=== PATIENT | female | born 1955 | race Caucasian/White ===

== ENCOUNTER 2018-08-28 22:28 | Emergency (ER) | payer SELFPAY ==
[2018-08-28 22:38] VITALS: BMI 23.3
[2018-08-28] MEDS ORDERED: TDAP Vaccine 0.5 mL Syr IM ONE (23:10)
[2018-08-28 23:25] VITALS: RESP 18; TEMP 98
--- NOTE | 2018-08-28 23:45 | ED PDOC ---
Arrival/HPI - General Historian: Patient - History of Present Illness Narrative History of Present Illness (Text): 08/28/18 23:10 Michel Montes De Oca is a 62 year old female who presents to the Emergency department status post mechanical fall after she tripped and fell due to a "raised" section of sidewalk. Patient now complaining of pain to upper lip/right cheek and left knee. Patient sustained a laceration to the inner aspect of upper lip and broke her left upper frontal tooth. Patient denies any loss of consciousness, back pain, neck pain, other injuries, or any other complaints. Time/Duration: Prior to Arrival Symptom Onset: Sudden Symptom Course: Unchanged Context: Tripped <Jacqueline Castle PA-C - Last Filed: 08/29/18 00:23> <Emeka Vela - Last Filed: 08/29/18 00:29> - General Chief Complaint: Trauma Time Seen by Provider: 08/28/18 22:56 Past Medical History - Provider Review Nursing Documentation Reviewed: Yes - Cardiac Hx Hypertension: Yes - Psychiatric Hx Substance Use: No <Jacqueline Castle PA-C - Last Filed: 08/29/18 00:23> Family/Social History - Physician Review Nursing Documentation Reviewed: Yes Family/Social History: Unknown Family HX Smoking Status: Never Smoked Hx Alcohol Use: No Hx Substance Use: No <Jacqueline Castle PA-C - Last Filed: 08/29/18 00:23> Allergies/Home Meds <Jacqueline Castle PA-C - Last Filed: 08/29/18 00:23> <Emeka Vela - Last Filed: 08/29/18 00:29> Allergies/Adverse Reactions: Allergies No Known Allergies Allergy (Verified 08/29/18 00:10) Home Medications: Home Meds Medication Instructions Recorded Confirmed Unobtainable 08/29/18 08/29/18 Review of Systems - Physician Review All systems were reviewed & negative as marked: Yes - Review of Systems ENT: Other (+broken left upper frontal tooth) Skin: Laceration <Jacqueline Castle PA-C - Last Filed: 08/29/18 00:23> Physical Exam Vital Signs Reviewed: Yes Vital Signs Temp Pulse Resp BP Pulse Ox 08/28/18 23:01 98 F 81 18 172/111 H 98 Temperature: Afebrile Blood Pressure: Hypertensive Pulse: Regular Respiratory Rate: Normal Appearance: Positive for: Well-Appearing, Non-Toxic, Comfortable Pain Distress: None Mental Status: Positive for: Alert and Oriented X 3 - Systems Exam Head: Present: Normocephalic, Tenderness (Tenderness to right cheek/zygoma), Swelling (Mild edema to right cheek/zygoma), Abrasion (Abrasion to upper lip), Laceration (1 cm laceration to mucosa of upper lip) Pupils: Present: PERRL Extroacular Muscles: Present: EOMI Conjunctiva: Present: Normal Ears: Present: Normal, NORMAL TM, Normal Canal. No: Erythema, TM Bulging, Fluid, TM Perf Mouth: No: Normal Teeth (Fractured left upper front tooth) Pharnyx: Present: Normal. No: ERYTHEMA, EXUDATE, TONSILS ENLARGED, Peritonsilar Swelling, Uvular Deviation, Muffled/Hoarse Voice, Strider, Soft Palate/Uvular Edema Nose (External): Present: Atraumatic Nose (Internal): Present: Normal Inspection Neck: Present: Normal Range of Motion. No: Meningeal Signs, MIDLINE TENDERNESS, Paraspinal Tenderness Respiratory/Chest: Present: Clear to Auscultation, Good Air Exchange. No: Respiratory Distress, Accessory Muscle Use Cardiovascular: Present: Regular Rate and Rhythm, Normal S1, S2. No: Murmurs Abdomen: No: Tenderness, Distention, Peritoneal Signs Back: Present: Normal Inspection. No: CVA Tenderness, Midline Tenderness, Paraspinal Tenderness Upper Extremity: Present: Normal Inspection. No: Cyanosis, Edema Lower Extremity: Present: NORMAL PULSES, Normal ROM, Neurovascularly Intact, Capillary Refill < 2 s, Other (Abrasion to left knee). No: Edema, Cyanosis, Tenderness, Swelling, Erythema, Deformity, Temperature Abnormalties Neurological: Present: GCS=15, CN II-XII Intact, Speech Normal Skin: Present: Warm, Dry, Normal Color. No: Rashes Psychiatric: Present: Alert, Oriented x 3, Normal Insight, Normal Concentration <Jacqueline Castle PA-C - Last Filed: 08/29/18 00:23> Vital Signs Temp Pulse Resp BP Pulse Ox 08/28/18 23:56 85 18 179/99 H 98 08/28/18 23:01 98 F 81 18 172/111 H 98 <Emeka Vela - Last Filed: 08/29/18 00:29> Medical Decision Making ED Course and Treatment: 08/28/18 23:10 Impression: 62 year old female presents s/p fall with lac to inner aspect of upper lip and broken left upper frontal tooth/ Plan: -- CT Head w/o contrast -- CT Maxillofacial w/o contrast -- TDAP -- Tylenol -- Reassess and disposition Prior Visits: Notes and results from previous visits were reviewed. Progress Notes: 08/29/18 00:23 CT head w/o contrast : No acute intracranial abnormality. As read by Bruno Sandoval MD 08/29/18 00:08 CT maxillofacial w/o contrast : unremarkable maxillofacial CT. As read by Bruno Sandoval MD 08/29/18 00:08 - RAD Interpretation Radiology Orders: 08/28/18 23:10 HEAD W/O CONTRAST [CT] Stat MAXILLOFACIAL W/O CONTRAST [CT] Stat - Medication Orders Current Medication Orders: Discontinued Medications Acetaminophen (Tylenol 325mg Tab) 650 mg PO STAT STA Stop: 08/28/18 23:11 Last Admin: 08/28/18 23:22 Dose: 650 mg MAR Pain/Vitals Document 08/28/18 23:22 RG (Rec: 08/28/18 23:23 RG [id number]) Pain Reassessment Is This A Pain ReAssessment? Yes Presence of Pain Presence of Pain Yes Location Pain Location Body Site Face Pain Behavior Facial Grimacing Tetanus/Reduced Diphtheria/Acell Pertussis (Boostrix Vaccine Inj) 0.5 ml IM .ONCE ONE Stop: 08/28/18 23:11 <Jacqueline Castle PA-C - Last Filed: 08/29/18 00:23> - RAD Interpretation Radiology Orders: 08/28/18 23:10 HEAD W/O CONTRAST [CT] Stat MAXILLOFACIAL W/O CONTRAST [CT] Stat - Medication Orders Current Medication Orders: Discontinued Medications Acetaminophen (Tylenol 325mg Tab) 650 mg PO STAT STA Stop: 08/28/18 23:11 Last Admin: 08/28/18 23:22 Dose: 650 mg MAR Pain/Vitals Document 08/28/18 23:22 RG (Rec: 08/28/18 23:23 [id number]) Pain Reassessment Is This A Pain ReAssessment? Yes Presence of Pain Presence of Pain Yes Location Pain Location Body Site Face Pain Behavior Facial Grimacing Re-Assess: MAR Pain/Vitals Document 08/29/18 00:22 (Rec: 08/29/18 00:26 [id number]) Pain Reassessment Is This A Pain ReAssessment? Yes Presence of Pain Presence of Pain Yes Pain Scale Used Protocol: PSCALES Pain Scale Used Numeric Location Left, Right or Bilateral Right Pain Location Body Site Cheek Intensity 3 Scale Used Numeric Pain Behavior Facial Grimacing Tetanus/Reduced Diphtheria/Acell Pertussis (Boostrix Vaccine Inj) 0.5 ml IM .ONCE ONE Stop: 08/28/18 23:11 Last Admin: 08/29/18 00:22 Dose: 0.5 ml Immunization Registry Document 08/29/18 00:22 (Rec: 08/29/18 00:25 [id number]) [facility]-Date provided 08/28/18 <Emeka Vela - Last Filed: 08/29/18 00:29> - PA / PATIENT EDUCATOR / Resident Statement NALLELY has reviewed & agrees with the documentation as recorded. - Scribe Statement The provider has reviewed the documentation as recorded by the Leftyibcarmine Grubbs Provider Scribe Attestation: All medical record entries made by the Scribe were at my direction and personally dictated by me. I have reviewed the chart and agree that the record accurately reflects my personal performance of the history, physical exam, medical decision making, and the department course for this patient. I have also personally directed, reviewed, and agree with the discharge instructions and disposition. <Jacqueline Castle PA-C - Last Filed: 08/29/18 00:23> - PA / PATIENT EDUCATOR / Resident Statement NALLELY has reviewed & agrees with the documentation as recorded. <Emeka Vela - Last Filed: 08/29/18 00:29> Disposition/Present on Arrival - Present on Arrival Any Indicators Present on Arrival: No History of DVT/PE: No History of Uncontrolled Diabetes: No Urinary Catheter: No History of Decub. Ulcer: No History Surgical Site Infection Following: None - Disposition Have Diagnosis and Disposition been Completed?: Yes Disposition Time: 00:20 Patient Plan: Discharge <Jacqueline Castle PA-C - Last Filed: 08/29/18 00:23> <Emeka Vela - Last Filed: 08/29/18 00:29> - Disposition Diagnosis: Head trauma, Lip laceration, Fracture, tooth Disposition: HOME/ ROUTINE Condition: STABLE Discharge Instructions (ExitCare): Closed Head Injury, Fractured Tooth Additional Instructions: Thank you for letting us take care of you today. You were treated for head trauma, lip laceration, s/p trip and fall. The emergency medical care you received today was directed at your acute symptoms. It may take several days for your symptoms to resolve. Return to the Emergency Department if your symptoms worsen, do not improve, or if you have any other problems. Please contact your doctor in 2 days for re-evaluation and follow up. Bring any paperwork you were given at discharge with you along with any medications you are taking to your follow up visit. Our treatment cannot replace ongoing medical care by a primary care provider (PCP) outside of the emergency department. Thank you for allowing the [facility] team to be part of your care today. If you had a CT scan: A Radiologist will review the ED reading if any change in treatment is needed we will contact you. Referrals: FAMILY PROVIDER,NO [Primary Care Provider] - Follow up with primary Forms: [facility] EHR ([place])
[2018-08-29 01:55] VITALS: BP 182/90; PULSE 81; O2SAT 97
--- NOTE | 2018-08-29 08:12 | CT ---
Date of service: 08/28/2018 PROCEDURE: CT HEAD WITHOUT CONTRAST. HISTORY: trauma COMPARISON: None available. TECHNIQUE: Axial computed tomography images were obtained through the head/brain without intravenous contrast. Radiation dose: Total exam DLP = 702 mGy-cm. This CT exam was performed using one or more of the following dose reduction techniques: Automated exposure control, adjustment of the mA and/or kV according to patient size, and/or use of iterative reconstruction technique. FINDINGS: HEMORRHAGE: No intracranial hemorrhage. BRAIN: No mass effect or edema. Minimal chronic microvascular changes. VENTRICLES: Unremarkable. No hydrocephalus. CALVARIUM: Unremarkable. PARANASAL SINUSES: Unremarkable as visualized. No significant inflammatory changes. MASTOID AIR CELLS: Unremarkable as visualized. No inflammatory changes. OTHER FINDINGS: The report concurs with the preliminary [facility] report IMPRESSION: No acute findings
--- NOTE | 2018-08-29 08:14 | CT ---
Date of service: 08/28/2018 PROCEDURE: CT MAXILLOFACIAL BONES WITHOUT CONTRAST HISTORY: trauma COMPARISON: None available. TECHNIQUE: Contiguous axial CT images of the maxillofacial bones were obtained. Coronal and sagittal reformats were generated. Radiation dose: Total exam DLP = 759.58 mGy-cm. This CT exam was performed using one or more of the following dose reduction techniques: Automated exposure control, adjustment of the mA and/or kV according to patient size, and/or use of iterative reconstruction technique. FINDINGS: NASAL BONES: Unremarkable. ORBITS: Unremarkable. PARANASAL SINUSES/ MASTOIDS: Clear. MAXILLA: Unremarkable. MANDIBLE/ TEMPOROMANDIBULAR JOINTS: Unremarkable. SKULL BASE: Unremarkable. TEMPORAL BONES: Middle ears and mastoid grossly unremarkable. OTHER FINDINGS: None. IMPRESSION: Unremarkable non contrast enhanced CT of the maxillofacial bones.
== END 2018-08-29 02:00 | disposition home or self-care (01) ==
LOC: ED 22:28
DX: S01.511A Laceration without foreign body of lip, initial encounter (principal); S02.5XXA Fracture of tooth (traumatic), initial encounter for closed fracture; S09.90XA Unspecified injury of head, initial encounter; W01.0XXA Fall on same level from slipping, tripping and stumbling without subsequent striking against object, initial encounter; Y92.480 Sidewalk as the place of occurrence of the external cause; I10 Essential (primary) hypertension; Z23 Encounter for immunization